=== PATIENT | female | born 1950 | race Caucasian/White ===

== ENCOUNTER 2025-06-10 10:11 | Emergency (ER) | payer OTHER, MEDICARE ==
[2025-06-10 11:00] LABS: Absolute Lymphocytes (CBC) 1.3 K/uL (0.7-4.9); Hematocrit 43.9 % (36.0-45.0); Hemoglobin 14.6 g/dL (12.0-15.0); MCH 31.2 pg (27.0-35.0); MCHC 33.2 g/dL (32.0-36.0); MCV 93.7 fL (80-100); MPV 7.1 fL (7.6-11.3); Nucleated RBC Absolute Count 0.0 (0-0); Nucleated Red Blood Cells % 0.0 % (0-0); RBC Red Blood Cell Count 4.68 M/uL (3.86-4.86); White Blood Count 4.30 thou/uL (4.3-10.9)
[2025-06-10 11:20] LABS: ALT/SGPT 22.0 U/L (13-56); AST/SGOT 14.0 U/L (15-37); Albumin 3.4 g/dL (3.4-5.0); Albumin/Globulin Ratio 1.1 (1.1-1.8); Alkaline Phosphatase 42.0 U/L (45-117); Anion Gap 8.1 mEq/L (5.0-15.0); BUN Blood Urea Nitrogen 15.0 mg/dL (7-18); Globulin 3.1 g/dL (2.3-3.5); Glucose Level 99.0 mg/dL (74-106); Potassium 3.1 mEq/L (3.5-5.1)
[2025-06-10 11:21] LABS: Sqamous Epithelial None Seen /HPF (None Seen); Urine Culture Reflex Order REFLEXED; Urine Microscopic Reflex YN ORDER UMIC
--- NOTE | 2025-06-10 13:03 | RAD REPORT ---
EXAMINATION: CT Abdomen Pelvis W Contrast CLINICAL INDICATION: Female, 74 years old. HEMATURIA TECHNIQUE: CT abdomen and pelvis was performed, after the administration of IV contrast, as per formerly [facility] protocol. Axial, sagittal and coronal reconstructions were obtained. One or more of the following dose reduction techniques were used: Automated exposure control, adjustment of the mA and k V according to patient size, and iterative reconstruction. Unless otherwise specified, incidental findings do not require dedicated imaging follow-up. COMPARISON: No prior exam. FINDINGS: LOWER CHEST: The visualized lung bases are clear. LIVER: Normal in size and contour. No focal lesion. BILIARY SYSTEM: No suspicious abnormalities. SPLEEN: Normal size. No focal lesion. PANCREAS: No mass, ductal dilation, or unique-pancreatic fluid. ADRENALS: Normal; no mass. KIDNEYS: Normal size and contour. No hydronephrosis. URINARY BLADDER: Unremarkable. GASTROINTESTINAL TRACT: No evidence of free air, significant intra-abdominal free fluid, bowel obstru ction or abscess. Colonic diverticulosis without evidence of acute diverticulitis. APPENDIX: Normal appendix. LYMPH NODES: No lymphadenopathy. MUSCULOSKELETAL: No acute or suspicious osseous abnormality. Stable superior endplate mild compressio n deformity at L2, and mild compression deformity at T11. ADDITIONAL FINDINGS: None. IMPRESSION: No acute or concerning abnormalities seen in the abdomen or pelvis.Stable findings as above.
--- NOTE | 2025-06-10 13:21 | EDPHYS ---
Physician Documentation [facility] Name: Dixie Saeed Age: 74 yrs Sex: Female : 1950 Arrival Date: 06/10/2025 Time: 10:11 Bed 20 Private MD: ED Physician Flynn Gutierrez HPI: 06/10 11:12 This 74 yrs old Female presents to ER via Ambulatory with complaints of Urinary Problem.kb 11:12 Pt is a 74 year old female who presents for hematuria that started last night and has kb gotten worse. Denies pain, dysuria, fever. . Historical: - Allergies: 10:20 HYDRALAZINE; dd2 - PMHx: 10:20 ESSENTIAL TREMORS; gastric ulcers; Myocardial infarction; neuropathy; dd2 - PSHx: 10:20 cardiac stents; dd2 - Immunization history:: Adult Immunizations up to date. - Infectious Disease History:: Denies. - Social history:: Smoking status: Patient denies any tobacco usage or history of. ROS: 11:12 Constitutional: As per HPI kb Exam: 11:12 Constitutional: This is a well developed, well nourished patient who is awake, alert, kb and in no acute distress. Head/Face: Normocephalic, atraumatic. ENT: Moist Mucous membranes Cardiovascular: Regular rate Respiratory: Respirations even and unlabored. No increased work of breathing. Talking in full sentences Abdomen/GI: Soft, non-tender. No distention Back: No spinal tenderness. No costovertebral tenderness. Full range of motion. Skin: Warm, dry with normal turgor. Normal color. MS/ Extremity: Pulses equal, no cyanosis. Neurovascular intact. Full, normal range of motion. Neuro: Awake and alert, GCS 15, oriented to person, place, time, and situation. Vital Signs: 10:18 BP 113 / 78; Pulse 69; Resp 16; Temp 97.8; Pulse Ox 99% ; Weight 48.53 kg; Height 4 ft. dd2 10 in. ; Pain 0/10; 12:16 BP 138 / 71; Pulse 59; Resp 16; Pulse Ox 97% on R/A; jb4 13:44 BP 134 / 80; Pulse 58; Resp 20; Temp 98; Pulse Ox 100% on R/A; kj2 10:18 Body Mass Index 22.36 (48.53 kg, 147.32 cm) dd2 10:18 Pain Scale: Adult dd2 MDM: 10:17 Medical Screening Exam initiated kb 13:19 Data reviewed: vital signs, nurses notes. kb 13:19 Differential diagnosis: urinary tract infection, malignancy, kidney stone. Historians kb other than the Patient: Family Member: family. Counseling: I had a detailed discussion with the patient and/or guardian regarding the historical points, exam findings, and any diagnostic results supporting the discharge/admit diagnosis, lab results, radiology results, the need for outpatient follow up, a urologist, to return to the emergency department if symptoms worsen or persist or if there are any questions or concerns that arise at home. 13:20 ED course: Pt urinating without difficulty. Will return for urinary retention or other kb concerns. Will follow up with urologist. 06/10 10:27 Order name: CBC with Diff; Complete Time: 11:04 kb 06/10 10:27 Order name: CMP; Complete Time: 11:30 kb 06/10 10:27 Order name: UA Rfx Vinny Cult if indicated; Complete Time: 11:30 kb 06/10 11:27 Order name: Urine Culture EDMS 06/10 10:27 Order name: CT Abd/Pelvis - IV Contrast Only; Complete Time: 13:08 kb 06/10 10:27 Order name: IV Saline Lock; Complete Time: 11:01 kb 06/10 10:27 Order name: Labs collected and sent; Complete Time: 11:01 kb Administered Medications: 13:42 Drug: Potassium Chloride PO 40 mEq PO once Route: PO; kj2 13:45 Follow up: Response: Medication administered at discharge. kj2 13:42 Drug: Amoxicillin-Clavulanate PO 875 mg PO once Route: PO; kj2 13:45 Follow up: Response: Medication administered at discharge. kj2 Disposition: 15:21 Co-signature as Attending Physician, Flynn Gutierrez MD I reviewed the patient's care rn provided by the Advanced Practice Provider and agree with the diagnosis and treatment plan. Disposition Summary: 06/10/25 13:20 Discharge Ordered Notes: Location: Home kb Condition: Stable kb Diagnosis - Hematuria, unspecified kb Followup: kb - With: Emergency Department - When: As needed - Reason: Worsening of condition Followup: kb - With: Private Physician - When: 2 - 3 days - Reason: Recheck today's complaints, Continuance of care, Re-evaluation by your physician Discharge Instructions: - Discharge Summary Sheet kb - Hematuria, Adult kb Forms: - Medication Reconciliation Form kb - Antibiotic Education kb - Prescription Opioid Use kb - Patient Portal Instructions kb - Leadership Thank You Letter kb Prescriptions: - Augmentin 875-125 mg Oral Tablet - take 1 tablet ORAL route every 12 hours for 10 days; 20 tablet; Refills: 0, kb Product Selection Permitted Signatures: Dispatcher [employer] EDMS Tracey Toney, SYSTEMS LIBRARIAN-C SYSTEMS LIBRARIAN-CkFlynn Contreras MD MD rn Aliza Marie RN RN kj2 CELESTE CASTELAN RN RN dd2 Corrections: (The following items were deleted from the chart) 10:28 10:28 CBC+H.LAB.BRZ ordered. EDMS EDMS 10:28 10:28 COMPREHENSIVE METABOLIC PANEL+C.LAB.BRZ ordered. EDMS EDMS 10:28 10:28 UA Rfx Vinny Cult if indicated+U.LAB.BRZ ordered. EDMS EDMS 10:28 10:28 Abdomen Pelvis W Con+CT.RAD.BRZ ordered. EDMS EDMS
--- NOTE | 2025-06-10 13:21 | ER ---
Nurse's Notes [facility] Name: Dixie Saeed Age: 74 yrs Sex: Female : 1950 Arrival Date: 06/10/2025 Time: :11 Bed 20 Private MD: Diagnosis: Hematuria, unspecified Presentation: 06/10 10:18 Chief complaint: Patient states: URINATING BRIGHT RED BLOOD, STARTED AT 6PM. PT DENIES dd2 PAIN, N/V, FREQUENCY. Coronavirus screen: At this time, the client does not indicate any symptoms associated with coronavirus-19. Ebola Screen: No symptoms or risks identified at this time. Initial Sepsis Screen: Does the patient meet any 2 criteria? No. Patient's initial sepsis screen is negative. Does the patient have a suspected source of infection? No. Patient's initial sepsis screen is negative. Risk Assessment: Do you want to hurt yourself or someone else? Patient reports no desire to harm self or others. Onset of symptoms was June 09, 2025 at 18:00. 10:18 Method Of Arrival: Ambulatory dd2 10:18 Acuity: DAGOBERTO 3 dd2 Triage Assessment: 10:20 General: Appears in no apparent distress. comfortable, well groomed, well nourished, dd2 Behavior is calm, cooperative, appropriate for age. Pain: Denies pain. : Reports BLEEDING WITH URINATION. Historical: - Allergies: 10:20 HYDRALAZINE; dd2 - PMHx: 10:20 ESSENTIAL TREMORS; gastric ulcers; Myocardial infarction; neuropathy; dd2 - PSHx: 10:20 cardiac stents; dd2 - Immunization history:: Adult Immunizations up to date. - Infectious Disease History:: Denies. - Social history:: Smoking status: Patient denies any tobacco usage or history of. Screenin:37 [facility] ED Fall Risk Assessment (Adult) History of falling in the last 3 months, jb4 including since admission No falls in past 3 months (0 pts) Confusion or Disorientation No (0 pts) Intoxicated or Sedated No (0 pts) Impaired Gait No (0 pts) Mobility Assist Device Used Yes (1 pt) Altered Elimination No (0 pt) Score/Fall Risk Level 0 - 2 = Low Risk Oriented to surroundings, Maintained a safe environment. Abuse screen: Denies threats or abuse. Nutritional screening: No deficits noted. Tuberculosis screening: No symptoms or risk factors identified. Assessment: 10:30 General: Appears in no apparent distress. comfortable, Behavior is calm, cooperative, jb4 appropriate for age. Pain: Denies pain. Neuro: Level of Consciousness is awake, alert, obeys commands, Oriented to person, place, time, situation. Cardiovascular: Patient's skin is warm and dry. Respiratory: Airway is patent Respiratory effort is even, unlabored, Respiratory pattern is regular, symmetrical. Derm: Skin is intact, Skin is pink, warm \T\ dry. Musculoskeletal: Circulation, motion, and sensation intact. Range of motion: intact in all extremities. 12:16 Reassessment: Patient appears in no apparent distress at this time. Patient and/or jb4 family updated on plan of care and expected duration. Pain level reassessed. Patient is alert, oriented x 3, equal unlabored respirations, skin warm/dry/pink. 13:44 Reassessment: Patient appears in no apparent distress at this time. Patient and/or kj2 family updated on plan of care and expected duration. Pain level reassessed. Vital Signs: 10:18 BP 113 / 78; Pulse 69; Resp 16; Temp 97.8; Pulse Ox 99% ; Weight 48.53 kg; Height 4 ft. dd2 10 in. ; Pain 0/10; 12:16 BP 138 / 71; Pulse 59; Resp 16; Pulse Ox 97% on R/A; jb4 13:44 BP 134 / 80; Pulse 58; Resp 20; Temp 98; Pulse Ox 100% on R/A; kj2 10:18 Body Mass Index 22.36 (48.53 kg, 147.32 cm) dd2 10:18 Pain Scale: Adult dd2 ED Course: 10:15 Patient arrived in ED. ts1 10:16 Tracey Toney FNP-C is PHCP. kb 10:16 Flynn Gutierrez MD is Attending Physician. kb 10:20 Triage completed. dd2 10:20 Arm band placed on right wrist. dd2 10:30 Rob Talamantes, STACIE is Primary Nurse. jb4 10:37 Patient has correct armband on for positive identification. Bed in low position. Call jb4 light in reach. Side rails up X 1. Provided Education on: plan of care. 10:37 No provider procedures requiring assistance completed. jb4 10:43 Inserted saline lock: 20 gauge in right antecubital area, using aseptic technique. jb4 Blood collected. 11:01 CBC with Diff Sent. jb4 11:01 CMP Sent. jb4 11:01 UA Rfx Vinny Cult if indicated Sent. jb4 11:57 CT Abd/Pelvis - IV Contrast Only In Process Unspecified. EDMS 13:45 IV discontinued, intact, bleeding controlled, No redness/swelling at site. Pressure kj2 dressing applied. Administered Medications: 13:42 Drug: Potassium Chloride PO 40 mEq PO once Route: PO; kj2 13:45 Follow up: Response: Medication administered at discharge. kj2 13:42 Drug: Amoxicillin-Clavulanate PO 875 mg PO once Route: PO; kj2 13:45 Follow up: Response: Medication administered at discharge. kj2 Medication: 10:37 VIS not applicable for this client. jb4 Outcome: 13:20 Discharge ordered by . kb 13:45 Discharged to home ambulatory, with family, kj2 13:45 Condition: stable 13:45 Discharge instructions given to patient, family, Instructed on discharge instructions, follow up and referral plans. Demonstrated understanding of instructions, follow-up care, medications, 13:47 Patient left the ED. kj2 Signatures: Dispatcher [employer] EDMS Tracey Toney, CAKE BATTER MIXER-C CAKE BATTER MIXER-CkRob Olivares, RN RN jb4 Lydia Bower PAS PAS ts1 Aliza Marie RN RN kj2 CELESTE CASTELAN RN RN dd2
[2025-06-10] MEDS ORDERED: AMOX/K CLAV 875 MG TAB ONE (13:34)
[2025-06-10] MEDS ORDERED: POTASSIUM CL SA 10 MEQ TAB PO ONE (13:34)
[2025-06-10 14:38] VITALS: BP 134/80; TEMP 98; O2SAT 100
== END 2025-06-10 13:47 | disposition home or self-care (01) ==
LOC: ER 10:11
DX: R31.9 Hematuria, unspecified (principal); Z88.8 Allergy status to other drugs, medicaments and biological substances
CPT/HCPCS: 87088; 85025; 81001; 87086; 36415; 80053; 74177; 99284; Q9967